=== PATIENT | male | born 2000 | race Hispanic/Latino ===

== ENCOUNTER 2025-04-29 06:23 | Inpatient (IN) | payer OTHER, SELFPAY ==
[2025-04-29] MEDS ORDERED: MORPHINE 4 MG/ML SYR ONE (06:44)
[2025-04-29] MEDS ORDERED: ONDANSETRON 4 MG/2 ML VIAL ONE (06:44)
[2025-04-29] MEDS ORDERED: NA CHLORIDE 0.9% 1,000 ML ONE (06:47)
[2025-04-29 06:48] LABS: Absolute Lymphocytes (CBC) 2.6 K/uL (0.7-4.9); Hematocrit 43.0 % (39.6-49.0); Hemoglobin 14.4 g/dL (13.6-17.9); MCH 26.8 pg (27.0-35.0); MCHC 33.5 g/dL (32.0-36.0); MCV 80.0 fL (80-100); MPV 8.3 fL (7.6-11.3); Nucleated RBC Absolute Count 0.0 (0-0); Nucleated Red Blood Cells % 0.0 % (0-0); RBC Red Blood Cell Count 5.37 M/uL (4.33-5.43); White Blood Count 14.80 thou/uL (4.3-10.9)
[2025-04-29 06:49] LABS: Urine Microscopic Reflex YN NO UMIC
[2025-04-29 07:07] LABS: ALT/SGPT 44.0 U/L (16-61); AST/SGOT 15.0 U/L (15-37); Albumin 4.1 g/dL (3.4-5.0); Albumin/Globulin Ratio 1.1 (1.1-1.8); Alkaline Phosphatase 100.0 U/L (45-117); Anion Gap 11.9 mEq/L (5.0-15.0); BUN Blood Urea Nitrogen 10.0 mg/dL (7-18); Globulin 3.8 g/dL (2.3-3.5); Glucose Level 122.0 mg/dL (74-106); Lipase 28.0 U/L (13-75); Potassium 3.9 mEq/L (3.5-5.1)
--- NOTE | 2025-04-29 07:28 | RAD REPORT ---
EXAMINATION: CT ABDOMEN AND PELVIS WITH CONTRAST CLINICAL INDICATION: Abdominal pain TECHNIQUE: CT abdomen and pelvis was performed, after the administration of 100 cc Isovue-300.. Sagit bandar and coronal reconstructions were obtained. One or more of the following dose reduction techniques were used: Automated exposure control, adjustment of the mA and kV according to patient si ze, and iterative reconstruction. Unless otherwise specified, incidental findings do not require dedicated imaging follow-up. [id number]. Oral contrast was not given which limits evaluation of bowel and appendix. COMPARISON: .None FINDINGS: Small gallstone. Gallbladder wall probably upper limits normal thickness. Borderline gallbladder dist ention. Liver, spleen, pancreas, adrenals and kidneys appear unremarkable No evidence of diverticulitis. Normal appendix. Trace amount of ascites. Minimal posterior subluxation L5 on S1. Fluid within nondilated small bowel : IMPRESSION: Cholelithiasis with borderline gallbladder distention Trace amount of ascites within the pelvis Fluid within nondilated small bowel may indicate an enteritis
[2025-04-29] MEDS ORDERED: PIPERACIL/TAZO 4.5 GM VIAL IV ONE (07:30)
[2025-04-29] MEDS ORDERED: NA CHLORIDE 0.9% 250 ML ONE (07:31)
--- NOTE | 2025-04-29 08:19 | EDPHYS ---
Physician Documentation [facility] Name: Shahriar Prasad III Age: 24 yrs Sex: Male : 2000 Arrival Date: 04/29/2025 Time: 06:23 Bed 14 Private MD: ED Physician Julián Schroeder HPI: 04/29 06:46 This 24 yrs old Male presents to ER via Ambulatory with complaints of tt7 abdominal pain. 06:46 Patient states he woke up with sharp intermittent left lower quadrant pain that tt7 radiates to his left flank and back, no associated fever, no sick contacts, no associated nausea or vomiting, no exacerbating or alleviating factors, denies dysuria or hematuria, patient has no significant past medical history, he has no known drug allergies. Historical: - Allergies: 06:36 No Known Allergies; br2 - PMHx: 06:36 None; br2 - PSHx: 06:36 None; br2 - Immunization history:: Adult Immunizations up to date. - Infectious Disease History:: Denies. - Social history:: Smoking status: Patient reports the use of cigarette tobacco products, smokes one-half pack cigarettes per day, Reported history of juuling and/or vaping. Patient uses alcohol, occasionally. Patient/guardian denies using street drugs. ROS: 06:39 Constitutional: negative for fever. Cardiovascular: negative for chest pain. tt7 Respiratory: negative for shortness of breath. MS/Extremity: negative for injury and deformity. Skin: negative for rash. Neuro: negative for focal weakness. 06:39 Abdomen/GI: Positive for abdominal pain, Negative for nausea and vomiting, Exam: 06:39 Constitutional: vital signs reviewed, uncomfortable appearing. Head/Face: tt7 normocephalic, atraumatic. Eyes: no conjunctival injection, anicteric sclerae. ENT: mucus membranes moist. Neck: trachea midline, no JVD, no meningismus. Chest/axilla: normal chest wall appearance and motion, nontender, no crepitus. Cardiovascular: regular rate and rhythm, no murmurs, no rubs, no lower extremity edema. Respiratory: normal respiratory effort, no accessory muscle use, lungs CTAB. Abdomen/GI: soft, nondistended, moderate LLQ and L flank tenderness, no guarding or rebound, negative Chery's sign, no McBurney point tenderness. Back: normal ROM. Skin: warm, dry, intact, normal turgor, normal color, no rash. MS/ Extremity: normal ROM of extremities, no gross deformities. Neuro: alert and oriented with appropriate mental status, normal speech, follows commands, no focal neurologic deficits. Psych: appropriate mood and affect. Vital Signs: 06:34 BP 137 / 88; Pulse 76; Resp 18; Temp 97; Pulse Ox 100% ; Weight 90.72 kg; Height 5 ft. br2 9 in. ; Pain 3/10; 06:43 BP 137 / 88; Pulse 137; Resp 22; Pulse Ox 98% on R/A; at6 07:43 BP 126 / 82; Pulse 61; Resp 16; Pulse Ox 99% ; bp 06:34 Body Mass Index 29.53 (90.72 kg, 175.26 cm) br2 06:34 Pain Scale: Adult br2 MDM: 06:30 Medical Screening Exam initiated tt7 06:39 Differential diagnosis: nephrolithiasis, pyelonephritis, UTI, diverticulitis, tt7 pancreatitis. Data reviewed: vital signs, nurses notes, lab test result(s), radiologic studies. 06:44 ED course: Standard laboratory studies ordered, patient is uncomfortable appearing, tt7 will treat pain with parenteral opioid, CT imaging ordered of the abdomen/pelvis to rule out acute pathology, suspect ureterolithiasis versus diverticulitis versus pancreatitis. 06:59 ED course: Urinalysis without evidence of acute infection, patient care signed out to tt7 Dr. Schroeder at shift change at 0700 pending results of laboratory studies and CT imaging. 04/29 06:36 Order name: CBC with Diff; Complete Time: 07:09 tt7 04/29 06:36 Order name: CMP; Complete Time: 07:09 tt7 04/29 06:36 Order name: Lipase; Complete Time: 07:09 tt7 04/29 06:36 Order name: UA Rfx Octavio Cult if indicated; Complete Time: 06:51 tt7 04/29 10:32 Order name: Magnesium EDMS 04/29 10:32 Order name: CBC with Automated Diff EDMS 04/29 10:32 Order name: CBC with Automated Diff EDMS 04/29 10:32 Order name: CBC with Automated Diff EDMS 04/29 10:32 Order name: Comprehensive Metabolic Panel EDMS 04/29 10:32 Order name: Comprehensive Metabolic Panel EDIN 04/29 10:32 Order name: Comprehensive Metabolic Panel EDIN 04/29 10:32 Order name: PTT, Activated Partial Thromb EDMS 04/29 10:32 Order name: PTT, Activated Partial Thromb EDIN 04/29 10:54 Order name: Glucose, Ancillary Testing; Complete Time: 13:31 EDMS 04/29 06:36 Order name: CT Abd/Pelvis - IV Contrast Only; Complete Time: 07:49 tt7 04/29 07:50 Order name: US Abdomen Limited; Complete Time: 15:59 rafia 04/29 10:28 Order name: CONS Physician Consult EDIN 04/29 06:36 Order name: IV Saline Lock; Complete Time: 06:37 tt7 04/29 06:36 Order name: Labs collected and sent; Complete Time: 06:37 tt7 Administered Medications: 06:48 Drug: morphine IVP or IV 4 mg IVP once over 4 mins Route: IVP; Infused Over: 4 mins; af3 Site: right antecubital; 06:48 Drug: NS 0.9% IV 1000 ml IV at 1 bolus Per protocol; to be given as a bolus over 60 af3 minutes Route: IV; Rate: 1 bolus; Site: right antecubital; 06:49 Drug: Ondansetron IVP 4 mg IVP once; over 2 minutes Route: IVP; Site: right antecubital;af3 07:18 Follow up: Response: No adverse reaction bp 07:30 Drug: Piperacillin-Tazobactam IVPB 4.5 grams IVPB once over 60 mins; (mix in 100 mL NS) bp Route: IVPB; Infused Over: 60 mins; Site: right antecubital; Disposition: 06:59 Co-signature as Attending Physician, Juvenal Pierce DO. tt7 Disposition Summary: 04/29/25 08:18 Hospitalization Ordered Notes: Hospitalization Status: Inpatient Admission rafia Provider: John Noriega cha Condition: Stable rafia Problem: new rafia Symptoms: have improved rafia Bed/Room Type: Standard rafia Location: Telemetry/MedSurg (Inpatient)(04/29/25 14:39) bd Room Assignment: 216(04/29/25 14:39) bd Diagnosis - Acute cholecystitis rafia - Other cholelithiasis with obstruction rafia - Elevated white blood cell count rafia Forms: - Medication Reconciliation Form rafia - SBAR form rafia - Leadership Thank You Letter rafia Signatures: Dispatcher [employer] EDMS AdryanMelissa pavon Julián Genao MD MD cha Peltier, Brian, RN RN bp Rosario Stratton, RN RN br2 Magaly Frank RN RN af3 Juvenal Pierce, DO DO tt7 Corrections: (The following items were deleted from the chart) 06:37 06:37 CBC+H.LAB.BRZ ordered. EDMS EDMS 06:37 06:37 COMPREHENSIVE METABOLIC PANEL+C.LAB.BRZ ordered. EDMS EDMS 06:37 06:37 LIPASE+C.LAB.BRZ ordered. EDMS EDMS 06:37 06:37 UA Rfx Octavio Cult if indicated+U.LAB.BRZ ordered. EDMS EDMS 06:37 06:37 Abdomen Pelvis W Con+CT.RAD.BRZ ordered. EDMS EDMS 11:37 08:18 Telemetry/MedSurg (Inpatient) rafia bp 11:37 08:18 rafia bp 14:39 11:37 BR ER HOLD bp bd 14:39 11:37 ERHOLD- bp bd
--- NOTE | 2025-04-29 08:19 | ER ---
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 PT DENIES N/V/D. PT TOOK A HYDROCODONE AT 0530 AND HAS HELPED WITH THE PAIN. Coronavirus screen: Client denies travel out of the [place] in the last 14 days. Ebola Screen: Patient denies exposure to infectious person. Initial Sepsis Screen: Does the patient meet any 2 criteria? No. Patient's initial sepsis screen is negative. Does the patient have a suspected source of infection? No. Patient's initial sepsis screen is negative. Risk Assessment: Do you want to hurt yourself or someone else? Patient reports no desire to harm self or others. Onset of symptoms was April 29, 2025 at 04:30. 06:34 Method Of Arrival: Ambulatory br2 06:34 Acuity: LEON 3 br2 Triage Assessment: 06:36 General: Appears uncomfortable, Behavior is calm, cooperative. Pain: Complains of pain br2 in left lower quadrant Pain radiates to left low back Pain currently is 3 out of 10 on a pain scale. GI: Reports upper abdominal pain. Historical: - Allergies: 06:36 No Known Allergies; br2 - PMHx: 06:36 None; br2 - PSHx: 06:36 None; br2 - Immunization history:: Adult Immunizations up to date. - Infectious Disease History:: Denies. - Social history:: Smoking status: Patient reports the use of cigarette tobacco products, smokes one-half pack cigarettes per day, Reported history of juuling and/or vaping. Patient uses alcohol, occasionally. Patient/guardian denies using street drugs. Screenin:43 [facility] ED Fall Risk Assessment (Adult) History of falling in the last 3 months, at6 including since admission No falls in past 3 months (0 pts) Confusion or Disorientation No (0 pts) Intoxicated or Sedated No (0 pts) Impaired Gait No (0 pts) Mobility Assist Device Used No (0 pt) Altered Elimination No (0 pt). [facility] ED Fall Risk Assessment (Adult) Score/Fall Risk Level 0 - 2 = Low Risk. Abuse screen: Denies threats or abuse. Denies injuries from another. Nutritional screening: No deficits noted. Tuberculosis screening: No symptoms or risk factors identified. Assessment: 06:44 GI: Abdomen is tender to palpation in left lower quadrant. at6 06:44 GI: Bowel sounds present X 4 quads. at6 Vital Signs: 06:34 BP 137 / 88; Pulse 76; Resp 18; Temp 97; Pulse Ox 100% ; Weight 90.72 kg; Height 5 ft. br2 9 in. ; Pain 3/10; 06:43 BP 137 / 88; Pulse 137; Resp 22; Pulse Ox 98% on R/A; at6 07:43 BP 126 / 82; Pulse 61; Resp 16; Pulse Ox 99% ; bp 06:34 Body Mass Index 29.53 (90.72 kg, 175.26 cm) br2 06:34 Pain Scale: Adult br2 ED Course: 06:26 Patient arrived in ED. gm2 06:28 Magaly Frank, RN is Primary Nurse. af3 06:28 Juvenal Pierce DO is Attending Physician. af3 06:34 Initial lab(s) drawn, by ED staff, sent to lab. Inserted saline lock: 20 gauge in right af3 antecubital area, using aseptic technique. Blood collected. Flushed with 10 mL NS. 06:36 Triage completed. br2 06:43 Arm band placed on left wrist. at6 06:44 Patient has correct armband on for positive identification. Bed in low position. Call at6 light in reach. Side rails up X 1. Provided Education on: pain management . 07:05 Primary Nurse role handed off by Magaly Frank, OLY bp 07:05 Chavez Jones, RN is Primary Nurse. bp 07:10 CT Abd/Pelvis - IV Contrast Only In Process Unspecified. EDMS 07:14 Attending Physician role handed off by Juvenal Pierce DO rafia 07:14 Julián Schroeder MD is Attending Physician. rafia 08:15 US Abdomen Limited In Process Unspecified. EDMS 08:17 John Noriega is Hospitalizing Provider. rafia 11:42 No provider procedures requiring assistance completed. Patient admitted, IV remains in bp place. Administered Medications: 06:48 Drug: morphine IVP or IV 4 mg IVP once over 4 mins Route: IVP; Infused Over: 4 mins; af3 Site: right antecubital; 06:48 Drug: NS 0.9% IV 1000 ml IV at 1 bolus Per protocol; to be given as a bolus over 60 af3 minutes Route: IV; Rate: 1 bolus; Site: right antecubital; 06:49 Drug: Ondansetron IVP 4 mg IVP once; over 2 minutes Route: IVP; Site: right antecubital;af3 07:18 Follow up: Response: No adverse reaction bp 07:30 Drug: Piperacillin-Tazobactam IVPB 4.5 grams IVPB once over 60 mins; (mix in 100 mL NS) bp Route: IVPB; Infused Over: 60 mins; Site: right antecubital; Outcome: 08:18 Decision to Hospitalize by Provider. rafia 11:43 Admitted to ER Hold. Please see [facility] for further documentation. bp 11:43 Condition: stable 11:43 Instructed on the need for admit, 16:07 Patient left the ED. rg5 Signatures: Dispatcher [employer] EDMS Julián Schroeder MD MD cha Peltier, Brian, RN RN Heather Fuentes [facility] Rui Collins RN RN rg5 Rosario Stratton RN RN br2 Magaly Frank RN RN af3 Heather Pierce RN RN at6
--- NOTE | 2025-04-29 08:47 | RAD REPORT ---
EXAM: Abdominal exam Limited ultrasound CLINICAL HISTORY: Abdominal pain COMPARISON: April 29, 2025 CT FINDINGS: 6 mm stone within the gallbladder fundus. Gallbladder wall upper limits normal thickness. Gallbladder upper limits normal caliber. Biliary tree normal caliber IMPRESSION: Cholelithiasis
[2025-04-29] MEDS ORDERED: ONDANSETRON 4 MG/2 ML VIAL IV PRN (10:29)
[2025-04-29] MEDS ORDERED: MORPHINE 4 MG/ML SYR IV PRN (10:56)
[2025-04-29] MEDS: Ringers Lactate 1,000 ML IV SCH (11:00)
[2025-04-29] MEDS ORDERED: Ringers Lactate 1,000 ML IV ONE (11:12)
[2025-04-29 11:43] VITALS: BMI 23.1
--- NOTE | 2025-04-29 14:28 | P.HP ---
Certification for Inpatient Patient admitted to: Inpatient With expected LOS: <2 Midnights Patient will require the following post-hospital care: None Practitioner: I am a practitioner with admitting privileges, knowledge of patient current condition, hospital course, and medical plan of care. Services: Services provided to patient in accordance with Admission requirements found in Title 42 Section 412.3 of the Code of Federal Regulations Patient History Date of Service: 04/29/25 Reason for admission: Abdominal pain/cholecystitis History of Present Illness: Patient is a 24-year-old male with no known past medical history who presents to the ED with abdominal pain times x 1 day. Patient reports that pain started intermittently and was sharp to the left lower quadrant then radiated to the left flank/back. Denies fever, nausea vomiting, chest pain, or hematuria. ED workup with abdomen/pelvis CT showing cholecystitis with borderline gallbladder distention, trace amount of ascites with the pelvis, and fluid with non-dilated bowel which may indicate enteritis. Abdominal ultrasound showed as Cholelithiasis. Patient was given NS, Zofran, morphine, and Zosyn while in the ED. ED attending consulted Dr. Schwarz and patient being admitted for possible surgical intervention. Allergies No Known Allergies Allergy (Unverified 04/29/25 10:08) Home medications list reviewed: Yes (Denies home meds) - Past Medical/Surgical History Has patient received pneumonia vaccine in the past: No Diabetic: No Past Medical History: Patient denies medical history Past Surgical History: Patient denies surgical history - Social History Smoking Status: Current every day smoker Smoking therapy provided: Yes Alcohol use: Yes CD- Drugs: No Caffeine use: Yes Place of Residence: Home Review of Systems 10-point ROS is otherwise unremarkable Gastrointestinal: Nausea, Abdominal Pain Physical Examination - Physical Exam General: Alert, In no apparent distress HEENT: Atraumatic, PERRLA, Mucous membr. moist/pink, EOMI, Sclerae nonicteric Neck: Supple, 2+ carotid pulse no bruit, No LAD, Without JVD or thyroid abnormality Respiratory: Clear to auscultation bilaterally, Normal air movement Cardiovascular: Regular rate/rhythm, Normal S1 S2 Capillary refill: <2 Seconds Gastrointestinal: Normal bowel sounds, Distended, Tenderness, Rebound Musculoskeletal: No tenderness Integumentary: No rashes Neurological: Normal gait, Normal speech, Normal strength at 5/5 x4 extr, Normal tone, Normal affect Lymphatics: No axilla or inguinal lymphadenopathy - Studies Laboratory Data (last 24 hrs) 04/29/25 04/29/25 06:39 06:39 WBC 14.80 H Hgb 14.4 Hct 43.0 Plt Count 222 Sodium 138 Potassium 3.9 BUN 10 Creatinine 0.97 Glucose 122 H Total Bilirubin 0.4 AST 15 ALT 44 Alkaline Phosphatase 100 Lipase 28 Assessment and Plan - Plan Patient is a 24-year-old male with no known past medical history who presents to the ED with abdominal pain times x 1 day. Abdominal pain Cholecystitis - Abdomen/pelvis CT showing cholecystitis with borderline gallbladder distention, trace amount of ascites with the pelvis, and fluid with non-dilated bowel which may indicate enteritis. - Abdominal ultrasound showed as Cholelithiasis. - WBC 14.8, neutrophils 74.1, urinalysis negative - Patient was given NS, Zofran, morphine, and Zosyn while in the ED. - ED attending consulted Dr. Schwarz and patient being admitted for possible surgical intervention - NPO for now with LR @100mL/hr - Continue Zosyn for now - IV morphine 1 mg every 4 hours as needed for pain - IV Zofran 4 mg IV every 6 hours as needed for nausea - Continue to monitor electrolytes DVT PPx: Held for surgery, SCDs for now CODE STATUS: Full code Discharge Plan: Home Plan to discharge in: 24 Hours - Advance Directives Does patient have a Living Will: No Does patient have a Durable POA for Healthcare: No - Code Status/Comfort Care Code Status Assessed: Yes (Full code) Critical Care: No Time Spent Managing Pts Care (In Minutes): 38
[2025-04-29 16:42] VITALS: O2SAT 99
[2025-04-29] MEDS: PIPER TAZO 4.5 GM in NA CHLORIDE 0.9% 100 ML IV SCH (16:56)
[2025-04-30 05:37] LABS: Absolute Lymphocytes (CBC) 2.7 K/uL (0.7-4.9); Hematocrit 38.7 % (39.6-49.0); Hemoglobin 13.3 g/dL (13.6-17.9); MCH 27.1 pg (27.0-35.0); MCHC 34.2 g/dL (32.0-36.0); MCV 79.2 fL (80-100); MPV 7.9 fL (7.6-11.3); Nucleated RBC Absolute Count 0.0 (0-0); Nucleated Red Blood Cells % 0.1 % (0-0); RBC Red Blood Cell Count 4.88 M/uL (4.33-5.43); White Blood Count 7.50 thou/uL (4.3-10.9)
[2025-04-30 05:53] LABS: ALT/SGPT 44.0 U/L (16-61); AST/SGOT 13.0 U/L (15-37); Albumin 3.2 g/dL (3.4-5.0); Albumin/Globulin Ratio 1.0 (1.1-1.8); Alkaline Phosphatase 69.0 U/L (45-117); Anion Gap 8.7 mEq/L (5.0-15.0); BUN Blood Urea Nitrogen 6.0 mg/dL (7-18); Globulin 3.1 g/dL (2.3-3.5); Glucose Level 89.0 mg/dL (74-106); Potassium 3.7 mEq/L (3.5-5.1)
[2025-04-30] MEDS: KCL 20 MEQ/100 mL IVPB 20 MEQ/100 ML BAG IV ONE (06:54)
[2025-04-30 10:14] LABS: Anion Gap 7.5 mEq/L (5.0-15.0); BUN Blood Urea Nitrogen 7.0 mg/dL (7-18); Glucose Level 138.0 mg/dL (74-106); Potassium 3.5 mEq/L (3.5-5.1)
--- NOTE | 2025-04-30 10:30 | P.PN ---
Subjective Date of Service: 04/30/25 Chief Complaint: Abdominal pain/cholecystitis Subjective: No new changes Patient was examined while resting in bed. Patient updated on plan for HIDA scan to evaluate the need for surgical intervention. Denies complaints at this time Review of Systems 10-point ROS is otherwise unremarkable Gastrointestinal: Abdominal Pain Physical Examination - Vital Signs Temperature: 97.7 F Blood Pressure: 117/73 Pulse: 66 Respirations: 18 Pulse Ox (%): 99 - Physical Exam General: Alert, In no apparent distress HEENT: Atraumatic, PERRLA, EOMI Neck: Supple Respiratory: Clear to auscultation bilaterally, Normal air movement Cardiovascular: Regular rate/rhythm, Normal S1 S2 Gastrointestinal: Normal bowel sounds, Distended (Mild), Tenderness (Mild) Musculoskeletal: No tenderness Integumentary: No rashes Neurological: Normal speech, Normal tone, Normal affect Lymphatics: No axilla or inguinal lymphadenopathy Assessment And Plan - Plan Patient is a 24-year-old male with no known past medical history who presents to the ED with abdominal pain times x 1 day. Abdominal pain Cholecystitis - Abdomen/pelvis CT showing cholecystitis with borderline gallbladder distention, trace amount of ascites with the pelvis, and fluid with non-dilated bowel which may indicate enteritis. - Abdominal ultrasound showed as Cholelithiasis. - Initial labs with WBC 14.8, neutrophils 74.1, urinalysis negative - Patient was given NS, Zofran, morphine, and Zosyn while in the ED. - ED attending consulted Dr. Schwarz and patient being admitted for possible surgical intervention - NPO for now with LR @100mL/hr - Continue Zosyn for now - IV morphine 1 mg every 4 hours as needed for pain - IV Zofran 4 mg IV every 6 hours as needed for nausea - Continue to monitor electrolytes - 04/30: WBC improved from 14.8-7.5 however bilirubin increased from 0.4-1.2. Patient now pending HIDA scan and follow-up needed with surgery team for the need of surgical intervention DVT PPx: Held for surgery, SCDs for now CODE STATUS: Full code Discharge Plan: Home Plan to discharge in: 24 Hours - Code Status/Comfort Care Code Status Assessed: Yes (Full code) Critical Care: No Time Spent Managing PTS Care (In Minutes): 28
--- NOTE | 2025-04-30 13:38 | RAD REPORT ---
EXAMINATION: NUCLEAR MEDICINE HIDA SCAN WITH GALLBLADDER EJECTION FRACTION CLINICAL INDICATION: Male, 24 years old. r/o surgery TECHNIQUE: Hepatobiliary imaging was acquired over the abdomen for 60 minutes following intravenous a dministration of radiotracer. Gallbladder ejection fraction determination was then performed utilizing synthetic 1.4 mgm CCK over a slow 30 minute infusion. RADIOPHARMACEUTICAL: 6.3 mCi Technetium 99m Mebrofenin. COMPARISON: No prior exams. FINDINGS: Normal hepatic uptake and excretion with appropriate clearance of background blood pool activity. Normal visualization of biliary and small bowel activity. Gallbladder visualizes within normal time limits. The calculated ejection fraction is 3% (normal greater than 35%). Subjective pain reported by the patient: Pre-procedure - none During or subsequent to synthetic CCK infusion - none IMPRESSION: Patient cystic duct and patent sphincter of Oddi. No delay in visualization of the gallbladder, biliary tree, or duodenum. Ejection fraction is 3% (normal greater than 35%). Subjective patient pain assessment as detailed above.
--- NOTE | 2025-04-30 14:31 | P.PN ---
Date of Service: 04/30/25 Patient is a 24-year-old man who presented with abdominal pain in the left side of his abdomen. He had imaging studies which showed concern for possible gallbladder disease. During his workup we performed a HIDA scan which was just completed at this point. The ejection fraction was 3% however the patient currently states he has no pain and has not had pain related to the HIDA scan or pre-HIDA scan. His pain resolved almost shortly after his presentation to the hospital. Patient has been instructed by myself that he should require a cholecystectomy preferably during this admission however he states he wants to eat and does not want to be in the hospital wants to go home. I have explained the respites alternatives of surgical management versus nonoperative management and that I have recommended surgical management with a laparoscopic cholecystectomy given his findings of a abnormal gallbladder ejection fraction however patient states he does not want any surgical intervention at this time as such we will feed the patient and if his diet is tolerated well we have told him he may follow-up as an outpatient however I have reiterated my recommendation for cholecystectomy prior to discharge. Will feed patient at this time and see if he tolerates diet. I have also explained that his liver function tests are elevated and he needs to follow-up with his primary medical doctor and myself as an outpatient. Patient states he will agrees to proceed as indicated. - Full consult note to follow.
--- NOTE | 2025-04-30 16:07 | P.DS ---
Admission Date: 04/29/25 Discharge Date: 04/30/25 Reason for Admission: Abdominal pain/cholecystitis Brief History of Present Illness: Patient is a 24-year-old male with no known past medical history who presents to the ED with abdominal pain times x 1 day. Patient reports that pain started intermittently and was sharp to the left lower quadrant then radiated to the left flank/back. Denies fever, nausea vomiting, chest pain, or hematuria. ED workup with abdomen/pelvis CT showing cholecystitis with borderline gallbladder distention, trace amount of ascites with the pelvis, and fluid with non-dilated bowel which may indicate enteritis. Abdominal ultrasound showed as Cholelit hiasis. Patient was given NS, Zofran, morphine, and Zosyn while in the ED. ED attending consulted Dr. Schwarz and patient being admitted for possible surgical intervention. Hospital Course: Abdominal pain/Cholecystitis Patient was started on IV abx and fluids while inpatient and had imaging studies which showed concern for possible gallbladder disease. During his workup a HIDA scan was recommended by surgical team and perfomed with ejection fraction showing 3% however the patient stated he had no pain and had not had pain related to the HIDA scan or pre-HIDA scan. His pain resolved almost shortly after his presentation to the hospital. Patient has been instructed by surgeon that he should require a cholecystectomy preferably during this admission however he stated that he wanted to eat and did not want to be in the hospital any longer. I have The Surgeon explained the respites alternatives of surgical management versus nonoperative management and recommended surgical management with a laparoscopic cholecystectomy given his findings of a abnormal gallbladder ejection fraction however patient stated that he did not want any surgical intervention at this time. Patient then was able to tolerate a diet and was highly recommended to do surgical intervention while inpatient. Patient was instructed to follow-up outpatient to follow up on liver function tests that were elevated. Patient's WBC was 14.8 on admission and 7.5 prior to discharge. Patient prescribed 7 days of Augmentin. <Dl Lopez - Last Filed: 04/30/25 15:58> Admission Date: 04/29/25 Discharge Date: 05/03/25 Hospital Course: Discharge diagnosis Cholelithiasis Gallbladder dyskinesia <rafael martel - Last Filed: 05/03/25 17:00> Disposition: ROUTINE DISCHARGE Discharge Condition: GOOD Vital Signs/Physical Exam: Temp Pulse Resp BP Pulse Ox 97.8 F 64 18 117/63 99 04/30/25 13:11 04/30/25 13:11 04/30/25 13:11 04/30/25 13:11 04/30/25 13:11 General: Alert, In no apparent distress HEENT: Atraumatic, PERRLA, EOMI Neck: Supple, JVD not distended Respiratory: Clear to auscultation bilaterally, Normal air movement Cardiovascular: Regular rate/rhythm, Normal S1 S2 Gastrointestinal: Normal bowel sounds, No tenderness Musculoskeletal: No tenderness Integumentary: No rashes Neurological: Normal speech, Normal tone, Normal affect Lymphatics: No axilla or inguinal lymphadenopathy Laboratory Data at Discharge: WBC 7.50 thou/uL (4.3-10.9) 04/30/25 05:22 Hgb 13.3 g/dL (13.6-17.9) L 04/30/25 05:22 Hct 38.7 % (39.6-49.0) L 04/30/25 05:22 Plt Count 203 thou/uL (152-406) 04/30/25 05:22 APTT 31.2 SECONDS (27.2-37.4) 04/30/25 05:22 Sodium 139 mEq/L (136-145) 04/30/25 09:24 Potassium 3.5 mEq/L (3.5-5.1) 04/30/25 09:24 BUN 7 mg/dL (7-18) 04/30/25 09:24 Creatinine 0.78 mg/dL (0.70-1.30) 04/30/25 09:24 Glucose 138 mg/dL (74-106) H 04/30/25 09:24 Magnesium Cancelled 04/29/25 Unknown Total Bilirubin 1.2 mg/dL (0.2-1.0) H 04/30/25 05:22 AST 13 U/L (15-37) L 04/30/25 05:22 ALT 44 U/L (16-61) 04/30/25 05:22 Alkaline Phosphatase 69 U/L (45-117) D 04/30/25 05:22 Lipase 28 U/L (13-75) 04/29/25 06:39 <Dl Lopez - Last Filed: 04/30/25 15:58> Vital Signs/Physical Exam: Temp Pulse Resp BP Pulse Ox 98.3 F 83 17 120/67 99 04/30/25 16:00 04/30/25 16:00 04/30/25 16:00 04/30/25 16:00 04/30/25 16:00 Laboratory Data at Discharge: WBC 7.50 thou/uL (4.3-10.9) 04/30/25 05:22 Hgb 13.3 g/dL (13.6-17.9) L 04/30/25 05:22 Hct 38.7 % (39.6-49.0) L 04/30/25 05:22 Plt Count 203 thou/uL (152-406) 04/30/25 05:22 APTT 31.2 SECONDS (27.2-37.4) 04/30/25 05:22 Sodium 139 mEq/L (136-145) 04/30/25 09:24 Potassium 3.5 mEq/L (3.5-5.1) 04/30/25 09:24 BUN 7 mg/dL (7-18) 04/30/25 09:24 Creatinine 0.78 mg/dL (0.70-1.30) 04/30/25 09:24 Glucose 138 mg/dL (74-106) H 04/30/25 09:24 Magnesium Cancelled 04/29/25 Unknown Total Bilirubin 1.2 mg/dL (0.2-1.0) H 04/30/25 05:22 AST 13 U/L (15-37) L 04/30/25 05:22 ALT 44 U/L (16-61) 04/30/25 05:22 Alkaline Phosphatase 69 U/L (45-117) D 04/30/25 05:22 Lipase 28 U/L (13-75) 04/29/25 06:39 <rafael martel - Last Filed: 05/03/25 17:00> Diet: [place] Activity: No restriction Time spent managing pt's care (in minutes): 45 <Dl Lopez - Last Filed: 04/30/25 15:58> <rafael martel - Last Filed: 05/03/25 17:00> New Medications: Amox/Clavulanate [Augmentin 875-125 Tab] 875 mg PO BID 7 Days #14 tab Physician Discharge Instructions: Patient to follow-up with surgery team and PCP for repeat labs within 3 to 5 days. Continue antibiotics as prescribed. Followup: Shankar Cuevas MD [ACTIVE - CAN ADMIT] - NONE,NONE [Primary Care Provider] -
[2025-04-30 17:17] VITALS: BP 120/67; TEMP 98.3
== END 2025-04-30 17:19 | disposition home or self-care (01) | DRG 445 ==
LOC: ER 06:23 → ERHOLD 10:25 → 2ND 14:54
PROVIDERS: ADMIT Internal Medicine; ATTEND Internal Medicine
DX: K80.00 Calculus of gallbladder with acute cholecystitis without obstruction (principal); R18.8 Other ascites; K52.9 Noninfective gastroenteritis and colitis, unspecified; F17.210 Nicotine dependence, cigarettes, uncomplicated; Z53.29 Procedure and treatment not carried out because of patient's decision for other reasons
CPT/HCPCS: 36415; 74177; 76705; 78227; 80048; 80053; 81003; 82947; 83690; 85025; 85730; 96374; 96375; 99285; A9537; J2405; J2805; J3480; J7030; J7050; J7120; Q9967